=== PATIENT | male | born 1960 ===

== ENCOUNTER 2017-04-29 05:22 | Day surgery (SDC) | payer OTHER ==
[~2017-04-29 05:22] MED LIST: HYDROCHLOROTH12.5 MG PO; NORVASC10 MG PO
[2017-04-29] MEDS ORDERED: NEURONTIN300 MG PO (09:55)
[2017-04-29] MEDS ORDERED: ULTRACET PO (09:55)
[2017-04-29] MEDS ORDERED: POLY119PG PO (09:55)
== END 2017-04-29 11:15 | disposition home or self-care (01) ==
LOC: CIR.AMB 05:22
DX: K42.0 Umbilical hernia with obstruction, without gangrene (principal)